=== PATIENT | male | born 1960 | race African-American/Black ===

== ENCOUNTER 2023-01-19 06:50 | Inpatient (IN) | payer MEDICAID, OTHER ==
[~2023-01-19] VITALS: Ht 182.9 cm; Wt 105.2 kg
[2023-01-19] VITALS (65 sets, daily range): BP systolic 47–165; BP diastolic 24–115; PULSE 43–103; RESP 6–37; TEMP 90–99.7
[2023-01-19] MEDS ORDERED: LIDOCAINE HCL 1% 20ML VIAL (Pyxis) INJ ONE (07:05)
[2023-01-19] MEDS ORDERED: IODIXANOL 320 MG/ML 150ML BOTTLE IV ONE (07:05)
[2023-01-19] MEDS ORDERED: MORPHINE SULFATE 2 MG/ML CPJ (NOT FOR IM USE) IV ONE (07:15)
[2023-01-19 07:24] LABS: BASOPHILS % 0.6 % (0.0-2.0); EOSINOPHILS % 1.9 % (0.0-5.0); HEMATOCRIT. 48.6 % (42.0-52.0); HEMOGLOBIN. 16.5 g/dL (14.0-18.0); MEAN CORPUSCULAR HEMOGLOBIN 30.2 pg (28.0-32.0); MEAN PLATELET VOLUME 9.4 fl (7.4-10.4); MONOCYTES % 5.5 % (2.0-8.0); PLATELET 198 x1000/uL (130-400); RED BLOOD CELL COUNT 5.46 mill/uL (4.7-6.1); RED CELL DISTRIBUTION WIDTH 15.4 % (11.6-14.6)
[2023-01-19] MEDS: PROPOFOL 10MG/ML 100ML 100 ML IV SCH ×2 (07:29→16:22)
[2023-01-19 07:32] LABS: CHLORIDE 104 mEq/L (98-107); INDEX HEMOLYSI 3 (1-3); INDEX ICTERIC 1 (1-4); INDEX LIPEMIC 1 (1-3); POTASSIUM 2.9 mEq/L (3.5-5.1); SODIUM 138 mEq/L (136-145)
[2023-01-19 07:36] LABS: INR 1.1
[2023-01-19 07:44] LABS: ALANINE AMINOTRANSFERASE 24 IU/L (13-61); ALBUMIN 3.2 g/dL (3.4-5.0); ASPARTATE AMINOTRANSFERASE 26 IU/L (15-37); CALCIUM 8.2 mg/dL (8.5-10.1); CARBON DIOXIDE 22 mEq/L (21-32); CREATININE 1.4 mg/dL (0.6-1.3); GLUCOSE 205 mg/dL (70-105); NT PRO B-TYPE NATRIURETIC PEP 3375 pg/mL (5-125); PROTEIN TOTAL 6.6 g/dL (6.0-8.3); TROPONIN I HIGH SENSITIVITY 58 ng/L (<78); UREA NITROGEN BLOOD 11 mg/dL (7-21)
[2023-01-19 07:46] LABS: BG BASE EXCESS -9.7 mmol/L (-2.0-2.0); BG CARBOXYHEMOGLOBIN 0.3 % (0.5-1.5); BG DEOXYHEMOGLOBIN 20.2 % (0.0-5.0); BG FRACTION INSPIRED OXYGEN 100; BG HCO3 ACT 16.7 mmol/L (22.0-26.0); BG METHEMOGLOBIN 0.1 % (0.0-1.5); BG OXYGEN SATURATION 79.7 % (92.0-98.5); BG OXYHEMOGLOBIN 79.4 % (94.0-97.0); BG PCO2 38.5 mmHg (35.0-45.0); BG PH 7.255 (7.350-7.450); BG PO2 51.4 mmHg (75.0-100.0); BG SAMPLE SITE RIGHT RADIAL; BG TOTAL HEMOGLOBIN 16.6 g/dL (12.0-18.0); BG VENT MODE VENT - AC
[2023-01-19] MEDS ORDERED: IOHEXOL-350 100 ML BOTTLE ONE (08:05)
[2023-01-19] MEDS ORDERED: KCL 20MEQ/100ML PREMIX 100 ML IV PRN ×2 (08:45→09:15)
[2023-01-19] MEDS ORDERED: MIDAZOLAM HCL 100 MG in DEXT 5% WATER 80 ML IV PRN (08:45)
[2023-01-19] MEDS ORDERED: ACETAMINOPHEN 650MG SUPP PR PRN ×2 (08:45)
[2023-01-19] MEDS ORDERED: CALCIUM GLUCONATE 2,000 MG in DEXT 5% WATER 80 ML IV PRN (08:45)
[2023-01-19] MEDS ORDERED: FENTANYL CITRATE/PF 1,000 MCG in SODIUM CHLORIDE 0.9% 80 ML IV PRN (08:45)
[2023-01-19] MEDS ORDERED: BUSPIRONE HCL 10MG TABLET NG PRN (08:45)
[2023-01-19] MEDS ORDERED: MAGNESIUM 2 G PREMIX 50 ML IV PRN (08:45)
[2023-01-19] MEDS ORDERED: IPRATROPIUM/ALBUTEROL 0.5-3(2.5)MG/3ML NEB HHN PRN (09:00)
[2023-01-19 09:17] LABS: BG BASE EXCESS -5.7 mmol/L (-2.0-2.0); BG CARBOXYHEMOGLOBIN 0.8 % (0.5-1.5); BG DEOXYHEMOGLOBIN 0.2 % (0.0-5.0); BG HCO3 ACT 18.5 mmol/L (22.0-26.0); BG METHEMOGLOBIN 0.3 % (0.0-1.5); BG OXYGEN SATURATION 99.8 % (92.0-98.5); BG OXYHEMOGLOBIN 98.7 % (94.0-97.0); BG PCO2 33.5 mmHg (35.0-45.0); BG PH 7.361 (7.350-7.450); BG PO2 388.1 mmHg (75.0-100.0); BG SAMPLE SITE LEFT RADIAL; BG TOTAL HEMOGLOBIN 16.8 g/dL (12.0-18.0); BG VENT MODE VENT - AC
[2023-01-19] MEDS: CHLORHEXIDINE GLUCONATE 4% EXTERNAL USE TOP SCH (09:30)
[2023-01-19 09:34] LABS: INR 1.1; PARTIAL THROMBOPLASTIN TIME 28.2 sec (23.4-31.0); PROTHROMBIN TIME 11.7 sec (9.6-11.0)
[2023-01-19 09:44] LABS: CREATINE KINASE MB FRACTION 3.1 ng/mL (0.5-3.6); THYROID STIMULATING HORMONE 2.3 uIU/mL (0.36-3.74)
[2023-01-19] MEDS ORDERED: POTASSIUM CHLORIDE INJ 40 MEQ in DEXT 5% WATER 250 ML IV ONE (10:30)
[2023-01-19] MEDS ORDERED: NOREPINEPHRINE 8 MG in DEXT 5% WATER 242 ML IV PRN (10:30)
[2023-01-19] MEDS ORDERED: LIDOCAINE HCL 1% 10 MG/ML 10ML VIAL ONE (10:41)
[2023-01-19] MEDS ORDERED: DEXTROSE 50% WATER 50ML SYRINGE IV PRN (10:45)
[2023-01-19] MEDS ORDERED: NOREPINEPHRINE 8MG/250ML PMX 250 ML IV PRN (10:45)
[2023-01-19] MEDS: NOREPINEPHRINE 32 MG in DEXT 5% WATER 218 ML IV PRN (11:12)
[2023-01-19] MEDS: FENTANYL CITRATE 2,500 MCG in SODIUM CHLORIDE 0.9% 200 ML IV PRN (11:14)
[2023-01-19] MEDS: PROPOFOL 10MG/ML 100ML 100 ML IV PRN ×2 (11:30→21:40)
[2023-01-19] MEDS: BLOOD SUGAR DIAGNOSTIC STRIP TEST SCH ×3 (11:30→20:52)
[2023-01-19] MEDS: KCL 20MEQ/100ML X 2 FOR TOTAL KCL 40MEQ/200ML IV SCH ×2 (12:00→14:00)
[2023-01-19] MEDS ORDERED: ATROPINE SULFATE 1MG/10ML SYR IV PRN (12:00)
[2023-01-19] MEDS: INSULIN LISPRO 100 UNITS/ML SUBCUT SCH ×3 (12:00→20:52)
[2023-01-19] MEDS: MIDAZOLAM HCL 100 MG in SODIUM CHLORIDE 0.9% 80 ML IV PRN (13:03)
[2023-01-19] MEDS: IPRATROPIUM/ALBUTEROL 0.5-3(2.5)MG/3ML NEB HHN SCH ×4 (13:06→21:07)
[2023-01-19] MEDS: MEPERIDINE HCL/PF 25MG/ML CPJ IV PRN (13:53)
[2023-01-19] MEDS: PANTOPRAZOLE SODIUM 40 MG/VIAL IV SCH (13:56)
[2023-01-19] MEDS: FUROSEMIDE 40MG/4ML VIAL IVP SCH ×2 (13:56→17:00)
[2023-01-19] MEDS: ENOXAPARIN 40MG/0.4ML SYR SUBCUT SCH (13:56)
[2023-01-19 14:02] LABS: CALCIUM 8.4 mg/dL (8.5-10.1); CREATININE 1.5 mg/dL (0.6-1.3); PHOSPHORUS 3.6 mg/dL (2.5-4.9)
[2023-01-19 15:50] LABS: CLARITY URINE TURBID (CLEAR); COLOR URINE DARK YELLOW (YELLOW); GLUCOSE URINE 1+ (NEGATIVE); KETONES URINE NEGATIVE (NEGATIVE); LEUKOCYTE ESTERASE URINE NEGATIVE (NEGATIVE); NITRITE URINE NEGATIVE (NEGATIVE); OCCULT BLOOD URINE 2+ (NEGATIVE); PH URINE 5.5 (4.5-8.0); PROTEIN URINE 4+ (NEGATIVE); SPECIFIC GRAVITY URINE 1.065 (1.005-1.030)
[2023-01-19 16:14] LABS: *AMPHETAMINES SCREEN URINE NEGATIVE (NEGATIVE); *BARBITURATES SCREEN URINE NEGATIVE (NEGATIVE); *BENZODIAZEPINES SCREEN URINE NEGATIVE (NEGATIVE); *COCAINE SCREEN URINE NEGATIVE (NEGATIVE); CANNABINOID URINE SCREEN NEGATIVE (NEGATIVE); ECSTASY MDMA SCREEN URINE NEGATIVE (NEGATIVE); METHADONE URINE SCREEN NEGATIVE (NEGATIVE); OPIATES URINE SCREEN PRESUMTIVE POSITIVE (NEGATIVE); PHENCYCLIDINE URINE SCREEN NEGATIVE (NEGATIVE)
[2023-01-19 16:50] LABS: BACTERIA URINE 4+; SQUAMOUS EPITHELIAL CELL URINE FEW /lpf (RARE/1+); WBC URINE 0-2 /hpf (0-2)
[2023-01-19 16:52] LABS: RBC URINE 15-25 /hpf (0-2)
[2023-01-19 17:16] LABS: BG BASE EXCESS -8.1 mmol/L (-2.0-2.0); BG CARBOXYHEMOGLOBIN 0.3 % (0.5-1.5); BG DEOXYHEMOGLOBIN 0.7 % (0.0-5.0); BG HCO3 ACT 19.6 mmol/L (22.0-26.0); BG METHEMOGLOBIN 0.3 % (0.0-1.5); BG OXYGEN SATURATION 99.3 % (92.0-98.5); BG OXYHEMOGLOBIN 98.7 % (94.0-97.0); BG PCO2 47.9 mmHg (35.0-45.0); BG SAMPLE SITE RIGHT RADIAL; BG TOTAL HEMOGLOBIN 18.1 g/dL (12.0-18.0); BG VENT MODE VENT - AC
[2023-01-19 17:56] LABS: POTASSIUM 3.8 mEq/L (3.5-5.1)
[2023-01-19 18:04] LABS: CALCIUM 9.3 mg/dL (8.5-10.1); CREATININE 1.6 mg/dL (0.6-1.3); PHOSPHORUS 3.5 mg/dL (2.5-4.9)
[2023-01-19 22:32] LABS: BG CARBOXYHEMOGLOBIN 0.3 % (0.5-1.5); BG DEOXYHEMOGLOBIN 3.9 % (0.0-5.0); BG FRACTION INSPIRED OXYGEN 40; BG HCO3 ACT 23.1 mmol/L (22.0-26.0); BG METHEMOGLOBIN 0.4 % (0.0-1.5); BG OXYGEN SATURATION 96.1 % (92.0-98.5); BG OXYHEMOGLOBIN 95.4 % (94.0-97.0); BG PCO2 40.8 mmHg (35.0-45.0); BG PH 7.371 (7.350-7.450); BG PO2 83.6 mmHg (75.0-100.0); BG SAMPLE SITE LEFT RADIAL; BG TOTAL HEMOGLOBIN 18.4 g/dL (12.0-18.0); BG TOTAL RESPIRATORY RATE 68 b/min; BG VENT MODE VENT - AC
[2023-01-20] VITALS (125 sets, daily range): BP systolic 71–146; BP diastolic 36–105; PULSE 45–110; RESP 8–25; TEMP 90–94.1
[2023-01-20] MEDS: IPRATROPIUM/ALBUTEROL 0.5-3(2.5)MG/3ML NEB HHN SCH ×5 (00:38→20:15)
[2023-01-20 01:19] LABS: TROPONIN I HIGH SENSITIVITY 952 ng/L (<78)
[2023-01-20 01:21] LABS: CALCIUM 9.5 mg/dL (8.5-10.1); CREATININE 1.6 mg/dL (0.6-1.3); PHOSPHORUS 3.3 mg/dL (2.5-4.9)
[2023-01-20] MEDS: PROPOFOL 10MG/ML 100ML 100 ML IV PRN ×6 (01:25→23:04)
[2023-01-20] MEDS: MIDAZOLAM HCL 100 MG in SODIUM CHLORIDE 0.9% 80 ML IV PRN ×2 (01:26→18:56)
[2023-01-20] MEDS: MEPERIDINE HCL/PF 25MG/ML CPJ IV PRN ×2 (05:05→09:28)
[2023-01-20 05:22] LABS: POTASSIUM 3.9 mEq/L (3.5-5.1)
[2023-01-20 05:34] LABS: CALCIUM 8.9 mg/dL (8.5-10.1); CREATININE 1.7 mg/dL (0.6-1.3); PHOSPHORUS 3.1 mg/dL (2.5-4.9)
[2023-01-20] MEDS: BLOOD SUGAR DIAGNOSTIC STRIP TEST SCH ×4 (06:04→20:24)
[2023-01-20] MEDS: INSULIN LISPRO 100 UNITS/ML SUBCUT SCH ×4 (06:05→20:24)
[2023-01-20] MEDS: PANTOPRAZOLE SODIUM 40 MG/VIAL IV SCH (09:02)
[2023-01-20] MEDS: FUROSEMIDE 40MG/4ML VIAL IVP SCH ×2 (09:02→17:24)
[2023-01-20 09:10] LABS: INR 1.1; PARTIAL THROMBOPLASTIN TIME 34.7 sec (23.4-31.0); PROTHROMBIN TIME 11.7 sec (9.6-11.0)
[2023-01-20] MEDS: ENOXAPARIN 40MG/0.4ML SYR SUBCUT SCH (09:11)
[2023-01-20] MEDS: CHLORHEXIDINE GLUCONATE 4% EXTERNAL USE TOP SCH (09:11)
[2023-01-20 10:02] LABS: BG BASE EXCESS -5.3 mmol/L (-2.0-2.0); BG CARBOXYHEMOGLOBIN 0.3 % (0.5-1.5); BG DEOXYHEMOGLOBIN 2.3 % (0.0-5.0); BG FRACTION INSPIRED OXYGEN 40; BG HCO3 ACT 22.5 mmol/L (22.0-26.0); BG METHEMOGLOBIN 0.7 % (0.0-1.5); BG OXYGEN SATURATION 97.7 % (92.0-98.5); BG OXYHEMOGLOBIN 96.7 % (94.0-97.0); BG PCO2 51.1 mmHg (35.0-45.0); BG PH 7.261 (7.350-7.450); BG SAMPLE SITE RIGHT RADIAL; BG TOTAL HEMOGLOBIN 19.8 g/dL (12.0-18.0); BG VENT MODE VENT - AC
[2023-01-20] MEDS: ASPIRIN 81MG TABLET PO SCH (11:35)
[2023-01-20] MEDS ORDERED: ENOXAPARIN 80MG/0.8ML SYR SUBCUT NR (11:45)
[2023-01-20] MEDS ORDERED: AMIODARONE HCL 900 MG in DEXT 5% WATER 482 ML IV SCH (13:00)
[2023-01-20 13:08] LABS: BASOPHILS % 0.3 % (0.0-2.0); EOSINOPHILS % 0.9 % (0.0-5.0); LYMPHOCYTES % 12.7 % (20.0-50.0); MEAN CORPUSCULAR HEMOGLOBIN 30.2 pg (28.0-32.0); MEAN CORPUSCULAR HGB CONC 34.6 g/dL (31.0-37.0); MEAN CORPUSCULAR VOLUME 87.2 fL (80.0-94.0); MONOCYTES % 10.1 % (2.0-8.0); PLATELET 250 x1000/uL (130-400); RED BLOOD CELL COUNT 5.96 mill/uL (4.7-6.1); RED CELL DISTRIBUTION WIDTH 15.6 % (11.6-14.6); WHITE BLOOD COUNT 9.2 x1000/uL (4.5-11.0)
[2023-01-20 13:24] LABS: POTASSIUM 3.6 mEq/L (3.5-5.1)
[2023-01-20 13:36] LABS: CALCIUM 8.6 mg/dL (8.5-10.1); CREATININE 1.8 mg/dL (0.6-1.3); PHOSPHORUS 4.8 mg/dL (2.5-4.9)
[2023-01-20] MEDS: ACETAMINOPHEN 650MG/20.3ML UDC NG PRN (15:20)
[2023-01-20] MEDS: PIPERACILLIN/TAZOBACTAM 3.375 G in DEXTROSE 5% WATER 50 ML IV SCH ×2 (17:24→23:04)
[2023-01-20] MEDS: DOCUSATE SODIUM SUGAR FREE 100MG/10ML UDC NG SCH (17:24)
[2023-01-20 17:30] LABS: BASOPHILS % 0.4 % (0.0-2.0); EOSINOPHILS % 1.1 % (0.0-5.0); HEMATOCRIT. 54.2 % (42.0-52.0); HEMOGLOBIN. 18.1 g/dL (14.0-18.0); LYMPHOCYTES % 13.3 % (20.0-50.0); MEAN CORPUSCULAR HEMOGLOBIN 29.7 pg (28.0-32.0); MEAN CORPUSCULAR HGB CONC 33.4 g/dL (31.0-37.0); MEAN CORPUSCULAR VOLUME 88.9 fL (80.0-94.0); MEAN PLATELET VOLUME 9.2 fl (7.4-10.4); MONOCYTES % 14.7 % (2.0-8.0); NEUTROPHILS % 70.5 % (40.0-76.0); PLATELET 251 x1000/uL (130-400); RED BLOOD CELL COUNT 6.09 mill/uL (4.7-6.1); RED CELL DISTRIBUTION WIDTH 15.8 % (11.6-14.6); WHITE BLOOD COUNT 10.4 x1000/uL (4.5-11.0)
[2023-01-20 17:40] LABS: INR 1.1; PROTHROMBIN TIME 11.6 sec (9.6-11.0)
[2023-01-20 17:41] LABS: POTASSIUM 3.7 mEq/L (3.5-5.1)
[2023-01-20 17:45] LABS: CREATININE 1.8 mg/dL (0.6-1.3)
[2023-01-20] MEDS: ATORVASTATIN CALCIUM 40MG TABLET PO SCH (20:25)
[2023-01-20] MEDS: NOREPINEPHRINE 32 MG in DEXT 5% WATER 218 ML IV PRN (20:25)
[2023-01-20] MEDS: FENTANYL CITRATE 2,500 MCG in SODIUM CHLORIDE 0.9% 200 ML IV PRN (20:26)
[2023-01-20 21:55] LABS: HEMATOCRIT. 53.8 % (42.0-52.0); HEMOGLOBIN. 17.9 g/dL (14.0-18.0); MEAN CORPUSCULAR HEMOGLOBIN 29.6 pg (28.0-32.0); MEAN CORPUSCULAR HGB CONC 33.2 g/dL (31.0-37.0); MEAN CORPUSCULAR VOLUME 89.2 fL (80.0-94.0); RED BLOOD CELL COUNT 6.04 mill/uL (4.7-6.1); RED CELL DISTRIBUTION WIDTH 16.2 % (11.6-14.6); WHITE BLOOD COUNT 12.1 x1000/uL (4.5-11.0)
[2023-01-20 22:02] LABS: CALCIUM 9.2 mg/dL (8.5-10.1); POTASSIUM 3.6 mEq/L (3.5-5.1)
[2023-01-20 22:05] LABS: INR 1.1; PROTHROMBIN TIME 11.9 sec (9.6-11.0)
[2023-01-20 22:07] LABS: PHOSPHORUS 4.5 mg/dL (2.5-4.9)
[2023-01-20 22:15] LABS: DIFFERENTIAL COMMENT 1
[2023-01-20 22:58] LABS: ANISOCYTOSIS 1+; PLATELET ESTIMATE NORMAL
[2023-01-20] MEDS: ENOXAPARIN 120MG/0.8ML SYR SUBCUT SCH (23:04)
[2023-01-21] VITALS (143 sets, daily range): BP systolic 69–168; BP diastolic 30–143; PULSE 57–124; RESP 4–30; TEMP 94.3–100.4
[2023-01-21] MEDS: IPRATROPIUM/ALBUTEROL 0.5-3(2.5)MG/3ML NEB HHN SCH ×6 (00:12→19:56)
[2023-01-21 02:00] LABS: CALCIUM 9.2 mg/dL (8.5-10.1); POTASSIUM 3.8 mEq/L (3.5-5.1)
[2023-01-21 02:03] LABS: BASOPHILS % 0.4 % (0.0-2.0); EOSINOPHILS % 1.4 % (0.0-5.0); HEMATOCRIT. 55.3 % (42.0-52.0); HEMOGLOBIN. 18.6 g/dL (14.0-18.0); LYMPHOCYTES % 13.7 % (20.0-50.0); MEAN CORPUSCULAR HEMOGLOBIN 29.9 pg (28.0-32.0); MEAN CORPUSCULAR HGB CONC 33.7 g/dL (31.0-37.0); MEAN CORPUSCULAR VOLUME 88.8 fL (80.0-94.0); MEAN PLATELET VOLUME 9.2 fl (7.4-10.4); NEUTROPHILS % 71.5 % (40.0-76.0); PLATELET 240 x1000/uL (130-400); RED BLOOD CELL COUNT 6.23 mill/uL (4.7-6.1); RED CELL DISTRIBUTION WIDTH 15.9 % (11.6-14.6); WHITE BLOOD COUNT 9.5 x1000/uL (4.5-11.0)
[2023-01-21] MEDS: PHENYLEPHRINE 100 MG in DEXT 5% WATER 240 ML IV PRN ×5 (02:16→23:52)
[2023-01-21] MEDS: PROPOFOL 10MG/ML 100ML 100 ML IV PRN ×4 (03:11→20:23)
[2023-01-21 04:29] LABS: BASOPHILS % 0.4 % (0.0-2.0); EOSINOPHILS % 1.3 % (0.0-5.0); HEMATOCRIT. 52.3 % (42.0-52.0); HEMOGLOBIN. 17.3 g/dL (14.0-18.0); LYMPHOCYTES % 13.9 % (20.0-50.0); MEAN CORPUSCULAR HEMOGLOBIN 29.6 pg (28.0-32.0); MEAN CORPUSCULAR HGB CONC 33.1 g/dL (31.0-37.0); MEAN CORPUSCULAR VOLUME 89.5 fL (80.0-94.0); NEUTROPHILS % 71.4 % (40.0-76.0); PLATELET 232 x1000/uL (130-400); RED BLOOD CELL COUNT 5.84 mill/uL (4.7-6.1); RED CELL DISTRIBUTION WIDTH 15.9 % (11.6-14.6); WHITE BLOOD COUNT 8.2 x1000/uL (4.5-11.0)
[2023-01-21 04:55] LABS: CALCIUM 8.4 mg/dL (8.5-10.1); CREATININE 2.7 mg/dL (0.6-1.3); POTASSIUM 3.5 mEq/L (3.5-5.1)
[2023-01-21] MEDS: PIPERACILLIN/TAZOBACTAM 3.375 G in DEXTROSE 5% WATER 50 ML IV SCH ×3 (05:09→22:56)
[2023-01-21 05:10] LABS: MEAN PLATELET VOLUME 9.3 fl (7.4-10.4); PLATELET 261 x1000/uL (130-400)
[2023-01-21] MEDS: BLOOD SUGAR DIAGNOSTIC STRIP TEST SCH ×4 (06:37→21:22)
[2023-01-21] MEDS: INSULIN LISPRO 100 UNITS/ML SUBCUT SCH ×4 (06:37→21:00)
[2023-01-21] MEDS: PANTOPRAZOLE SODIUM 40 MG/VIAL IV SCH (09:00)
[2023-01-21] MEDS: ASPIRIN 81MG TABLET PO SCH (09:00)
[2023-01-21] MEDS: DOCUSATE SODIUM SUGAR FREE 100MG/10ML UDC NG SCH ×2 (09:00→16:21)
[2023-01-21] MEDS: CHLORHEXIDINE GLUCONATE 4% EXTERNAL USE TOP SCH (09:00)
[2023-01-21] MEDS: FUROSEMIDE 40MG/4ML VIAL IVP SCH (09:02)
[2023-01-21 09:17] LABS: POTASSIUM 4.1 mEq/L (3.5-5.1)
[2023-01-21 09:18] LABS: CALCIUM 8.3 mg/dL (8.5-10.1)
[2023-01-21 09:22] LABS: CREATININE 3.2 mg/dL (0.6-1.3)
[2023-01-21 10:19] LABS: BG BASE EXCESS -6.6 mmol/L (-2.0-2.0); BG CARBOXYHEMOGLOBIN 0.3 % (0.5-1.5); BG DEOXYHEMOGLOBIN 4.8 % (0.0-5.0); BG FRACTION INSPIRED OXYGEN 40; BG HCO3 ACT 19.7 mmol/L (22.0-26.0); BG METHEMOGLOBIN 0.7 % (0.0-1.5); BG OXYGEN SATURATION 95.2 % (92.0-98.5); BG OXYHEMOGLOBIN 94.2 % (94.0-97.0); BG PH 7.288 (7.350-7.450); BG PO2 86.5 mmHg (75.0-100.0); BG SAMPLE SITE RIGHT RADIAL; BG TOTAL HEMOGLOBIN 19.7 g/dL (12.0-18.0); BG VENT MODE VENT - AC
[2023-01-21] MEDS: SODIUM CHLORIDE 0.9% 1,000 ML IV SCH (12:02)
[2023-01-21] MEDS: CITRIC ACID/SODIUM CITRATE SOLN 30ML UDC NG SCH ×2 (12:28→16:21)
[2023-01-21] MEDS: ENOXAPARIN 120MG/0.8ML SYR SUBCUT SCH (12:28)
[2023-01-21] MEDS: MIDODRINE HCL 5MG TABLET PO SCH ×2 (12:29→16:21)
[2023-01-21 12:55] LABS: POTASSIUM 4.6 mEq/L (3.5-5.1)
[2023-01-21 13:03] LABS: CALCIUM 8.4 mg/dL (8.5-10.1); CREATININE 3.3 mg/dL (0.6-1.3)
[2023-01-21] MEDS: ACETAMINOPHEN 650MG/20.3ML UDC NG PRN (13:12)
[2023-01-21] MEDS: AMIODARONE HCL 200 MG TABLET PO SCH ×2 (15:31→20:27)
[2023-01-21 20:24] LABS: BG BASE EXCESS -7.4 mmol/L (-2.0-2.0); BG CARBOXYHEMOGLOBIN 0.3 % (0.5-1.5); BG DEOXYHEMOGLOBIN 3.6 % (0.0-5.0); BG FRACTION INSPIRED OXYGEN 30; BG HCO3 ACT 17.9 mmol/L (22.0-26.0); BG METHEMOGLOBIN 0.6 % (0.0-1.5); BG OXYGEN SATURATION 96.4 % (92.0-98.5); BG OXYHEMOGLOBIN 95.5 % (94.0-97.0); BG PCO2 36.6 mmHg (35.0-45.0); BG PH 7.307 (7.350-7.450); BG PO2 93.3 mmHg (75.0-100.0); BG SAMPLE SITE RIGHT RADIAL; BG TOTAL HEMOGLOBIN 19.4 g/dL (12.0-18.0); BG TOTAL RESPIRATORY RATE 24 b/min; BG VENT MODE VENT - AC
[2023-01-21] MEDS: ATORVASTATIN CALCIUM 40MG TABLET PO SCH (20:27)
[2023-01-21 21:10] LABS: HEMATOCRIT. 55.5 % (42.0-52.0); HEMOGLOBIN. 18.3 g/dL (14.0-18.0); MEAN CORPUSCULAR HEMOGLOBIN 29.8 pg (28.0-32.0); MEAN CORPUSCULAR VOLUME 90.4 fL (80.0-94.0); RED BLOOD CELL COUNT 6.14 mill/uL (4.7-6.1); RED CELL DISTRIBUTION WIDTH 16.8 % (11.6-14.6); WHITE BLOOD COUNT 10.9 x1000/uL (4.5-11.0)
[2023-01-21 21:13] LABS: CHLORIDE 102 mEq/L (98-107); INDEX HEMOLYSI 1 (1-3); INDEX ICTERIC 1 (1-4); INDEX LIPEMIC 1 (1-3); SODIUM 134 mEq/L (136-145)
[2023-01-21 21:17] LABS: INR 1.2; PARTIAL THROMBOPLASTIN TIME 43.6 sec (23.4-31.0)
[2023-01-21 21:21] LABS: DIFFERENTIAL COMMENT 1
[2023-01-21 21:25] LABS: ALANINE AMINOTRANSFERASE 173 IU/L (13-61); ALBUMIN 3.4 g/dL (3.4-5.0); ASPARTATE AMINOTRANSFERASE 208 IU/L (15-37); BILIRUBIN TOTAL 1.3 mg/dL (0.1-1.0); CALCIUM 8.6 mg/dL (8.5-10.1); CARBON DIOXIDE 19 mEq/L (21-32); CREATININE 2.9 mg/dL (0.6-1.3); GLUCOSE 71 mg/dL (70-105); PROTEIN TOTAL 8.3 g/dL (6.0-8.3); UREA NITROGEN BLOOD 30 mg/dL (7-21)
[2023-01-21 21:35] LABS: TROPONIN I HIGH SENSITIVITY 256 ng/L (<78)
[2023-01-21 21:46] LABS: MEAN PLATELET VOLUME 9.2 fl (7.4-10.4); PLATELET 248 x1000/uL (130-400); PLATELET ESTIMATE NORMAL
[2023-01-21] MEDS: MEPERIDINE HCL/PF 25MG/ML CPJ IV PRN (23:20)
[2023-01-22] VITALS (92 sets, daily range): BP systolic 74–219; BP diastolic 36–113; PULSE 62–88; RESP 14–30; TEMP 97.8–100
[2023-01-22] MEDS: IPRATROPIUM/ALBUTEROL 0.5-3(2.5)MG/3ML NEB HHN SCH ×6 (00:18→20:14)
[2023-01-22] MEDS: MEPERIDINE HCL/PF 25MG/ML CPJ IV PRN (03:50)
[2023-01-22] MEDS: PROPOFOL 10MG/ML 100ML 100 ML IV PRN ×4 (03:51→23:00)
[2023-01-22] MEDS: PHENYLEPHRINE 100 MG in DEXT 5% WATER 240 ML IV PRN ×3 (04:43→17:13)
[2023-01-22 04:59] LABS: HEMATOCRIT. 51.3 % (42.0-52.0); HEMOGLOBIN. 17.1 g/dL (14.0-18.0); MEAN CORPUSCULAR HEMOGLOBIN 29.9 pg (28.0-32.0); MEAN CORPUSCULAR HGB CONC 33.3 g/dL (31.0-37.0); MEAN CORPUSCULAR VOLUME 89.7 fL (80.0-94.0); MEAN PLATELET VOLUME 9.9 fl (7.4-10.4); PLATELET 242 x1000/uL (130-400); RED BLOOD CELL COUNT 5.72 mill/uL (4.7-6.1); RED CELL DISTRIBUTION WIDTH 16.5 % (11.6-14.6); WHITE BLOOD COUNT 9.2 x1000/uL (4.5-11.0)
[2023-01-22 05:13] LABS: CHLORIDE 100 mEq/L (98-107); INDEX HEMOLYSI 3 (1-3); INDEX ICTERIC 1 (1-4); INDEX LIPEMIC 1 (1-3); POTASSIUM 4.4 mEq/L (3.5-5.1); SODIUM 133 mEq/L (136-145)
[2023-01-22 05:26] LABS: ALANINE AMINOTRANSFERASE 214 IU/L (13-61); ALBUMIN 3.2 g/dL (3.4-5.0); ASPARTATE AMINOTRANSFERASE 304 IU/L (15-37); CALCIUM 7.9 mg/dL (8.5-10.1); CARBON DIOXIDE 22 mEq/L (21-32); CREATININE 3.2 mg/dL (0.6-1.3); GLUCOSE 76 mg/dL (70-105); PHOSPHORUS 7.4 mg/dL (2.5-4.9); PROTEIN TOTAL 7.6 g/dL (6.0-8.3); TRIGLYCERIDE 143 mg/dL (0-150); UREA NITROGEN BLOOD 32 mg/dL (7-21)
[2023-01-22 05:36] LABS: DIFFERENTIAL COMMENT 1
[2023-01-22 05:48] LABS: INR 1.2; PARTIAL THROMBOPLASTIN TIME 40.2 sec (23.4-31.0); PROTHROMBIN TIME 12.9 sec (9.6-11.0)
[2023-01-22] MEDS: SODIUM CHLORIDE 0.9% 1,000 ML IV SCH (06:30)
[2023-01-22] MEDS: INSULIN LISPRO 100 UNITS/ML SUBCUT SCH ×4 (07:00→20:42)
[2023-01-22] MEDS: PIPERACILLIN/TAZOBACTAM 3.375 G in DEXTROSE 5% WATER 50 ML IV SCH ×3 (07:01→22:00)
[2023-01-22] MEDS: BLOOD SUGAR DIAGNOSTIC STRIP TEST SCH ×4 (07:03→20:42)
[2023-01-22 07:09] LABS: TROPONIN I HIGH SENSITIVITY 208 ng/L (<78)
[2023-01-22 08:55] LABS: BG BASE EXCESS -4.6 mmol/L (-2.0-2.0); BG CARBOXYHEMOGLOBIN 0.6 % (0.5-1.5); BG DEOXYHEMOGLOBIN 7.4 % (0.0-5.0); BG FRACTION INSPIRED OXYGEN 30; BG HCO3 ACT 20.2 mmol/L (22.0-26.0); BG METHEMOGLOBIN 0.4 % (0.0-1.5); BG OXYGEN SATURATION 92.5 % (92.0-98.5); BG OXYHEMOGLOBIN 91.6 % (94.0-97.0); BG PCO2 37.1 mmHg (35.0-45.0); BG PH 7.353 (7.350-7.450); BG PO2 69.5 mmHg (75.0-100.0); BG SAMPLE SITE RIGHT RADIAL; BG TOTAL HEMOGLOBIN 17.9 g/dL (12.0-18.0); BG TOTAL RESPIRATORY RATE 25 b/min; BG VENT MODE VENT - AC
[2023-01-22] MEDS: MIDODRINE HCL 5MG TABLET PO SCH ×3 (09:00→16:45)
[2023-01-22] MEDS: ENOXAPARIN 120MG/0.8ML SYR SUBCUT SCH (09:00)
[2023-01-22] MEDS ORDERED: NOREPINEPHRINE 32 MG in SODIUM CHLORIDE 0.9% 218 ML IV PRN (09:00)
[2023-01-22] MEDS: DOCUSATE SODIUM SUGAR FREE 100MG/10ML UDC NG SCH ×2 (09:04→16:45)
[2023-01-22] MEDS: PANTOPRAZOLE SODIUM 40 MG/VIAL IV SCH (09:04)
[2023-01-22] MEDS: AMIODARONE HCL 200 MG TABLET PO SCH ×2 (09:04→21:00)
[2023-01-22] MEDS: ASPIRIN 81MG TABLET PO SCH (09:04)
[2023-01-22] MEDS: CITRIC ACID/SODIUM CITRATE SOLN 30ML UDC NG SCH ×2 (09:04→16:45)
[2023-01-22] MEDS: CHLORHEXIDINE GLUCONATE 4% EXTERNAL USE TOP SCH (09:05)
[2023-01-22 13:13] LABS: PLATELET ESTIMATE NORMAL
[2023-01-22] MEDS: ACETAMINOPHEN 650MG/20.3ML UDC NG PRN (16:45)
[2023-01-22] MEDS: ATORVASTATIN CALCIUM 40MG TABLET PO SCH (21:00)
[2023-01-23] VITALS (71 sets, daily range): BP systolic 94–147; BP diastolic 42–98; PULSE 55–95; RESP 22–29; TEMP 97.9–98.9
[2023-01-23] MEDS: IPRATROPIUM/ALBUTEROL 0.5-3(2.5)MG/3ML NEB HHN SCH ×6 (00:29→20:27)
[2023-01-23] MEDS: SODIUM CHLORIDE 0.9% 1,000 ML IV SCH ×2 (02:30→19:59)
[2023-01-23] MEDS: PROPOFOL 10MG/ML 100ML 100 ML IV PRN ×3 (04:00→14:41)
[2023-01-23] MEDS: PIPERACILLIN/TAZOBACTAM 3.375 G in DEXTROSE 5% WATER 50 ML IV SCH ×3 (05:10→22:00)
[2023-01-23 05:42] LABS: HEMATOCRIT 48.9 % (42.0-52.0); HEMOGLOBIN 16.1 g/dL (14.0-18.0); MEAN CORPUSCULAR HEMOGLOBIN 29.1 pg (28.0-32.0); MEAN CORPUSCULAR HGB CONC 32.9 g/dL (31.0-37.0); MEAN CORPUSCULAR VOLUME 88.4 fL (80.0-94.0); PLATELET 214 x1000/uL (130-400); RED BLOOD CELL COUNT 5.54 mill/uL (4.7-6.1); WHITE BLOOD COUNT 8.1 x1000/uL (4.5-11.0)
[2023-01-23 06:01] LABS: CHLORIDE 101 mEq/L (98-107); INDEX HEMOLYSI 1 (1-3); INDEX ICTERIC 1 (1-4); INDEX LIPEMIC 1 (1-3); POTASSIUM 3.2 mEq/L (3.5-5.1); SODIUM 134 mEq/L (136-145)
[2023-01-23 06:15] LABS: ALANINE AMINOTRANSFERASE 171 IU/L (13-61); ALBUMIN 2.9 g/dL (3.4-5.0); ASPARTATE AMINOTRANSFERASE 168 IU/L (15-37); BILIRUBIN TOTAL 1.1 mg/dL (0.1-1.0); CALCIUM 8.6 mg/dL (8.5-10.1); CARBON DIOXIDE 22 mEq/L (21-32); CREATININE 2.3 mg/dL (0.6-1.3); GLUCOSE 127 mg/dL (70-105); PROTEIN TOTAL 7.2 g/dL (6.0-8.3); TRIGLYCERIDE 148 mg/dL (0-150); UREA NITROGEN BLOOD 32 mg/dL (7-21)
[2023-01-23] MEDS: BLOOD SUGAR DIAGNOSTIC STRIP TEST SCH ×4 (06:38→21:05)
[2023-01-23] MEDS: INSULIN LISPRO 100 UNITS/ML SUBCUT SCH ×4 (07:00→21:00)
[2023-01-23] MEDS ORDERED: POTASSIUM CHLORIDE 20MEQ/PACKET PO NR (07:30)
[2023-01-23] MEDS: PANTOPRAZOLE SODIUM 40 MG/VIAL IV SCH (08:54)
[2023-01-23] MEDS: CITRIC ACID/SODIUM CITRATE SOLN 30ML UDC NG SCH ×2 (08:54→17:56)
[2023-01-23] MEDS: MIDODRINE HCL 5MG TABLET PO SCH ×3 (08:54→17:56)
[2023-01-23] MEDS: DOCUSATE SODIUM SUGAR FREE 100MG/10ML UDC NG SCH ×2 (08:54→17:00)
[2023-01-23] MEDS: ASPIRIN 81MG TABLET PO SCH (08:54)
[2023-01-23] MEDS: AMIODARONE HCL 200 MG TABLET PO SCH ×2 (08:55→21:05)
[2023-01-23] MEDS: ENOXAPARIN 120MG/0.8ML SYR SUBCUT SCH (09:03)
[2023-01-23] MEDS: CHLORHEXIDINE GLUCONATE 4% EXTERNAL USE TOP SCH (09:09)
[2023-01-23 12:25] LABS: BG CARBOXYHEMOGLOBIN 1.2 % (0.5-1.5); BG DEOXYHEMOGLOBIN 2.1 % (0.0-5.0); BG HCO3 ACT 23.8 mmol/L (22.0-26.0); BG METHEMOGLOBIN 0.5 % (0.0-1.5); BG OXYGEN SATURATION 97.9 % (92.0-98.5); BG OXYHEMOGLOBIN 96.2 % (94.0-97.0); BG PH 7.517 (7.350-7.450); BG PO2 88.1 mmHg (75.0-100.0); BG SAMPLE SITE LEFT RADIAL; BG TOTAL HEMOGLOBIN 16.6 g/dL (12.0-18.0); BG VENT MODE VENT - AC
[2023-01-23] MEDS: ATORVASTATIN CALCIUM 40MG TABLET PO SCH (21:05)
[2023-01-23] MEDS: MORPHINE SULFATE 2 MG/ML CPJ (NOT FOR IM USE) IV PRN (23:50)
[2023-01-24] VITALS (74 sets, daily range): BP systolic 60–146; BP diastolic 70–111; PULSE 55–79; RESP 11–28; TEMP 98.4–98.9
[2023-01-24] MEDS: IPRATROPIUM/ALBUTEROL 0.5-3(2.5)MG/3ML NEB HHN SCH ×4 (01:12→12:40)
[2023-01-24] MEDS: ACETAMINOPHEN 650MG/20.3ML UDC NG PRN (02:23)
[2023-01-24] MEDS: MORPHINE SULFATE 2 MG/ML CPJ (NOT FOR IM USE) IV PRN ×2 (02:50→09:11)
[2023-01-24 05:31] LABS: CHLORIDE 106 mEq/L (98-107); INDEX HEMOLYSI 1 (1-3); INDEX ICTERIC 1 (1-4); INDEX LIPEMIC 1 (1-3); POTASSIUM 3.2 mEq/L (3.5-5.1); SODIUM 138 mEq/L (136-145)
[2023-01-24] MEDS: PIPERACILLIN/TAZOBACTAM 3.375 G in DEXTROSE 5% WATER 50 ML IV SCH ×4 (05:39→22:50)
[2023-01-24 05:44] LABS: BASOPHILS % 0.3 % (0.0-2.0); EOSINOPHILS % 0.9 % (0.0-5.0); HEMATOCRIT. 47.6 % (42.0-52.0); HEMOGLOBIN. 15.6 g/dL (14.0-18.0); LYMPHOCYTES % 11.6 % (20.0-50.0); MEAN CORPUSCULAR HEMOGLOBIN 29.3 pg (28.0-32.0); MEAN CORPUSCULAR HGB CONC 32.8 g/dL (31.0-37.0); MEAN CORPUSCULAR VOLUME 89.3 fL (80.0-94.0); MEAN PLATELET VOLUME 8.8 fl (7.4-10.4); MONOCYTES % 14.8 % (2.0-8.0); NEUTROPHILS % 72.4 % (40.0-76.0); PLATELET 206 x1000/uL (130-400); RED BLOOD CELL COUNT 5.33 mill/uL (4.7-6.1); RED CELL DISTRIBUTION WIDTH 15.7 % (11.6-14.6); WHITE BLOOD COUNT 7.4 x1000/uL (4.5-11.0)
[2023-01-24 05:47] LABS: ALANINE AMINOTRANSFERASE 117 IU/L (13-61); ALBUMIN 2.8 g/dL (3.4-5.0); ASPARTATE AMINOTRANSFERASE 81 IU/L (15-37); CALCIUM 8.6 mg/dL (8.5-10.1); CARBON DIOXIDE 24 mEq/L (21-32); CREATINE KINASE 956 IU/L (39-308); CREATININE 2.2 mg/dL (0.6-1.3); GLUCOSE 101 mg/dL (70-105); PHOSPHORUS 2.2 mg/dL (2.5-4.9); PROTEIN TOTAL 7.1 g/dL (6.0-8.3); UREA NITROGEN BLOOD 37 mg/dL (7-21)
[2023-01-24] MEDS ORDERED: POTASSIUM CHLORIDE 20MEQ/PACKET PO NR (06:30)
[2023-01-24] MEDS: BLOOD SUGAR DIAGNOSTIC STRIP TEST SCH ×4 (06:46→21:00)
[2023-01-24] MEDS: INSULIN LISPRO 100 UNITS/ML SUBCUT SCH ×4 (07:00→21:00)
[2023-01-24] MEDS ORDERED: NALOXONE HCL 0.4MG/ML VIAL IV PRN (07:30)
[2023-01-24] MEDS ORDERED: POTASSIUM PHOS,M-BASIC-D-BASIC 20 MMOL in DEXT 5% WATER 243.3333 ML IV NR (07:45)
[2023-01-24 08:17] LABS: BG BASE EXCESS 2.9 mmol/L (-2.0-2.0); BG CARBOXYHEMOGLOBIN 0.4 % (0.5-1.5); BG DEOXYHEMOGLOBIN 1.6 % (0.0-5.0); BG FRACTION INSPIRED OXYGEN 30; BG HCO3 ACT 24.2 mmol/L (22.0-26.0); BG METHEMOGLOBIN 0.4 % (0.0-1.5); BG OXYGEN SATURATION 98.4 % (92.0-98.5); BG OXYHEMOGLOBIN 97.6 % (94.0-97.0); BG PCO2 28.7 mmHg (35.0-45.0); BG PH 7.543 (7.350-7.450); BG PO2 106.8 mmHg (75.0-100.0); BG SAMPLE SITE RIGHT RADIAL; BG TOTAL HEMOGLOBIN 16.2 g/dL (12.0-18.0); BG VENT MODE VENT - AC
[2023-01-24] MEDS: ASPIRIN 81MG TABLET PO SCH (08:51)
[2023-01-24] MEDS: CHLORHEXIDINE GLUCONATE 4% EXTERNAL USE TOP SCH (08:51)
[2023-01-24] MEDS: AMIODARONE HCL 200 MG TABLET PO SCH ×2 (08:51→20:25)
[2023-01-24] MEDS: PANTOPRAZOLE SODIUM 40 MG/VIAL IV SCH (08:51)
[2023-01-24] MEDS: DOCUSATE SODIUM SUGAR FREE 100MG/10ML UDC NG SCH ×2 (08:52→17:00)
[2023-01-24] MEDS: CITRIC ACID/SODIUM CITRATE SOLN 30ML UDC NG SCH ×2 (09:08→18:24)
[2023-01-24] MEDS: MIDODRINE HCL 5MG TABLET PO SCH ×3 (09:08→18:25)
[2023-01-24] MEDS: ENOXAPARIN 120MG/0.8ML SYR SUBCUT SCH (09:09)
[2023-01-24] MEDS: PROPOFOL 10MG/ML 100ML 100 ML IV PRN ×2 (13:16→20:24)
[2023-01-24] MEDS: SODIUM CHLORIDE 0.9% 1,000 ML IV SCH (13:17)
[2023-01-24] MEDS: ATORVASTATIN CALCIUM 40MG TABLET PO SCH (20:24)
[2023-01-25] VITALS (84 sets, daily range): BP systolic 106–158; BP diastolic 54–112; PULSE 44–75; RESP 8–24; TEMP 97.6–99
[2023-01-25] MEDS: PROPOFOL 10MG/ML 100ML 100 ML IV PRN ×5 (02:33→23:45)
[2023-01-25 05:07] LABS: HEMOGLOBIN. 14.5 g/dL (14.0-18.0); MEAN CORPUSCULAR HEMOGLOBIN 29.1 pg (28.0-32.0); MEAN CORPUSCULAR HGB CONC 32.3 g/dL (31.0-37.0); MEAN CORPUSCULAR VOLUME 90.1 fL (80.0-94.0); MEAN PLATELET VOLUME 8.3 fl (7.4-10.4); PLATELET 203 x1000/uL (130-400); RED BLOOD CELL COUNT 4.99 mill/uL (4.7-6.1); RED CELL DISTRIBUTION WIDTH 16.1 % (11.6-14.6)
[2023-01-25] MEDS: SODIUM CHLORIDE 0.9% 1,000 ML IV SCH ×3 (05:09→23:45)
[2023-01-25 05:27] LABS: DIFFERENTIAL COMMENT 1
[2023-01-25] MEDS: PIPERACILLIN/TAZOBACTAM 3.375 G in DEXTROSE 5% WATER 50 ML IV SCH (05:35)
[2023-01-25] MEDS: BLOOD SUGAR DIAGNOSTIC STRIP TEST SCH ×4 (06:30→21:00)
[2023-01-25] MEDS: INSULIN LISPRO 100 UNITS/ML SUBCUT SCH ×4 (06:48→21:00)
[2023-01-25 07:02] LABS: PLATELET ESTIMATE NORMAL
[2023-01-25] MEDS: PANTOPRAZOLE SODIUM 40 MG/VIAL IV SCH (08:31)
[2023-01-25] MEDS: CITRIC ACID/SODIUM CITRATE SOLN 30ML UDC NG SCH ×2 (08:31→18:59)
[2023-01-25] MEDS: ASPIRIN 81MG TABLET PO SCH (08:31)
[2023-01-25] MEDS: CHLORHEXIDINE GLUCONATE 4% EXTERNAL USE TOP SCH (08:31)
[2023-01-25] MEDS: AMIODARONE HCL 200 MG TABLET PO SCH ×2 (08:32→21:00)
[2023-01-25] MEDS: MIDODRINE HCL 5MG TABLET PO SCH ×3 (08:32→17:00)
[2023-01-25] MEDS: DOCUSATE SODIUM SUGAR FREE 100MG/10ML UDC NG SCH ×2 (08:32→17:00)
[2023-01-25] MEDS: ENOXAPARIN 120MG/0.8ML SYR SUBCUT SCH ×2 (08:38→21:24)
[2023-01-25 08:53] LABS: BG BASE EXCESS -1.7 mmol/L (-2.0-2.0); BG CARBOXYHEMOGLOBIN 0.6 % (0.5-1.5); BG DEOXYHEMOGLOBIN 2.5 % (0.0-5.0); BG HCO3 ACT 21.7 mmol/L (22.0-26.0); BG METHEMOGLOBIN 0.3 % (0.0-1.5); BG OXYGEN SATURATION 97.5 % (92.0-98.5); BG OXYHEMOGLOBIN 96.6 % (94.0-97.0); BG PCO2 33.3 mmHg (35.0-45.0); BG PH 7.431 (7.350-7.450); BG PO2 102.7 mmHg (75.0-100.0); BG SAMPLE SITE RIGHT RADIAL; BG TOTAL HEMOGLOBIN 15.3 g/dL (12.0-18.0); BG VENT MODE VENT - AC
[2023-01-25 09:17] LABS: POTASSIUM 3.8 mEq/L (3.5-5.1)
[2023-01-25 09:24] LABS: CALCIUM 8.6 mg/dL (8.5-10.1)
[2023-01-25] MEDS ORDERED: POTASSIUM CHLORIDE 20MEQ/PACKET PO NR (09:45)
[2023-01-25 10:49] LABS: POTASSIUM 3.5 mEq/L (3.5-5.1)
[2023-01-25 10:53] LABS: CALCIUM 8.8 mg/dL (8.5-10.1); CREATININE 1.9 mg/dL (0.6-1.3)
[2023-01-25] MEDS ORDERED: IODIXANOL 320MG/ML 100 ML BOTTLE IV ONE (13:01)
[2023-01-25] MEDS ORDERED: HEPARIN 1000 UNITS/ML 10ML ONE (13:01)
[2023-01-25] MEDS ORDERED: VERAPAMIL HCL 2.5 MG/1 ML 2ML VIAL IV ONE (13:01)
[2023-01-25] MEDS ORDERED: LIDOCAINE HCL 1% 10 MG/ML 10ML VIAL ONE (13:02)
[2023-01-25] MEDS ORDERED: ATROPINE SULFATE 1MG/10ML SYR IV PRN (15:15)
[2023-01-25] MEDS ORDERED: ACETAMINOPHEN 325MG TABLET PO PRN (15:15)
[2023-01-25] MEDS ORDERED: SODIUM CHLORIDE 0.45% 500 ML IV ONE (15:30)
[2023-01-25] MEDS: ATORVASTATIN CALCIUM 40MG TABLET PO SCH (21:23)
[2023-01-26] VITALS (81 sets, daily range): BP systolic 92–180; BP diastolic 42–125; PULSE 48–93; RESP 12–29; TEMP 98.3–99.1
[2023-01-26] MEDS: PROPOFOL 10MG/ML 100ML 100 ML IV PRN (04:18)
[2023-01-26 05:57] LABS: BASOPHILS % 0.6 % (0.0-2.0); EOSINOPHILS % 4.8 % (0.0-5.0); HEMATOCRIT. 39.7 % (42.0-52.0); HEMOGLOBIN. 13.3 g/dL (14.0-18.0); MEAN CORPUSCULAR HEMOGLOBIN 29.8 pg (28.0-32.0); MEAN CORPUSCULAR HGB CONC 33.5 g/dL (31.0-37.0); MEAN PLATELET VOLUME 8.5 fl (7.4-10.4); MONOCYTES % 13.6 % (2.0-8.0); PLATELET 203 x1000/uL (130-400); RED BLOOD CELL COUNT 4.46 mill/uL (4.7-6.1); RED CELL DISTRIBUTION WIDTH 15.9 % (11.6-14.6); WHITE BLOOD COUNT 5.3 x1000/uL (4.5-11.0)
[2023-01-26] MEDS: BLOOD SUGAR DIAGNOSTIC STRIP TEST SCH ×3 (06:16→16:30)
[2023-01-26] MEDS: INSULIN LISPRO 100 UNITS/ML SUBCUT SCH ×3 (06:17→17:00)
[2023-01-26 08:59] LABS: POTASSIUM 3.9 mEq/L (3.5-5.1)
[2023-01-26] MEDS: MIDODRINE HCL 5MG TABLET PO SCH (09:00)
[2023-01-26] MEDS: CHLORHEXIDINE GLUCONATE 4% EXTERNAL USE TOP SCH (09:00)
[2023-01-26] MEDS: DOCUSATE SODIUM SUGAR FREE 100MG/10ML UDC NG SCH ×2 (09:00→17:00)
[2023-01-26 09:13] LABS: CALCIUM 7.8 mg/dL (8.5-10.1); CREATININE 1.5 mg/dL (0.6-1.3); PHOSPHORUS 2.3 mg/dL (2.5-4.9)
[2023-01-26] MEDS: CITRIC ACID/SODIUM CITRATE SOLN 30ML UDC NG SCH ×2 (11:08→17:45)
[2023-01-26] MEDS: AMIODARONE HCL 200 MG TABLET PO SCH ×2 (11:08→21:15)
[2023-01-26] MEDS: PANTOPRAZOLE SODIUM 40 MG/VIAL IV SCH (11:08)
[2023-01-26] MEDS: ASPIRIN 81MG TABLET PO SCH (11:09)
[2023-01-26] MEDS: ENOXAPARIN 120MG/0.8ML SYR SUBCUT SCH ×2 (11:13→21:16)
[2023-01-26] MEDS: ISOSORBIDE DINITRATE 20MG TABLET PO SCH ×2 (12:25→18:24)
[2023-01-26 12:48] LABS: BG CARBOXYHEMOGLOBIN 0.6 % (0.5-1.5); BG DEOXYHEMOGLOBIN 1.9 % (0.0-5.0); BG FRACTION INSPIRED OXYGEN 30; BG HCO3 ACT 23.2 mmol/L (22.0-26.0); BG METHEMOGLOBIN 0.4 % (0.0-1.5); BG OXYGEN SATURATION 98.1 % (92.0-98.5); BG OXYHEMOGLOBIN 97.1 % (94.0-97.0); BG PCO2 37.4 mmHg (35.0-45.0); BG PH 7.411 (7.350-7.450); BG PO2 114.7 mmHg (75.0-100.0); BG SAMPLE SITE RIGHT RADIAL; BG TOTAL HEMOGLOBIN 14.5 g/dL (12.0-18.0); BG VENT MODE VENT - CPAP
[2023-01-26] MEDS: HYDRALAZINE HCL 50MG TABLET PO SCH ×2 (13:14→21:16)
[2023-01-26] MEDS: SODIUM CHLORIDE 0.9% 1,000 ML IV SCH (13:30)
[2023-01-26] MEDS: HYDRALAZINE 20MG/ML VIAL IV PRN (14:35)
[2023-01-26 15:46] LABS: BG BASE EXCESS -1.1 mmol/L (-2.0-2.0); BG CARBOXYHEMOGLOBIN 0.4 % (0.5-1.5); BG DEOXYHEMOGLOBIN 1.9 % (0.0-5.0); BG FRACTION INSPIRED OXYGEN 35; BG HCO3 ACT 22.9 mmol/L (22.0-26.0); BG METHEMOGLOBIN 0.4 % (0.0-1.5); BG OXYGEN SATURATION 98.1 % (92.0-98.5); BG OXYHEMOGLOBIN 97.3 % (94.0-97.0); BG PCO2 36.1 mmHg (35.0-45.0); BG PO2 117.2 mmHg (75.0-100.0); BG SAMPLE SITE RIGHT RADIAL; BG TOTAL HEMOGLOBIN 14.6 g/dL (12.0-18.0); BG VENT MODE COOL AEROSOL
[2023-01-26] MEDS: MORPHINE SULFATE 2 MG/ML CPJ (NOT FOR IM USE) IV PRN (15:47)
[2023-01-26] MEDS: ACETAMINOPHEN 650MG/20.3ML UDC NG PRN (17:45)
[2023-01-26] MEDS: ATORVASTATIN CALCIUM 40MG TABLET PO SCH (21:16)
[2023-01-27] VITALS (29 sets, daily range): BP systolic 127–195; BP diastolic 76–108; PULSE 69–83; RESP 17–31; TEMP 96.6–100.2
[2023-01-27] MEDS: BLOOD SUGAR DIAGNOSTIC STRIP TEST SCH ×4 (00:49→17:17)
[2023-01-27] MEDS: INSULIN LISPRO 100 UNITS/ML SUBCUT SCH ×4 (00:49→17:18)
[2023-01-27] MEDS: MORPHINE SULFATE 2 MG/ML CPJ (NOT FOR IM USE) IV PRN (04:46)
[2023-01-27] MEDS: HYDRALAZINE 20MG/ML VIAL IV PRN ×2 (04:51→22:34)
[2023-01-27] MEDS: HYDRALAZINE HCL 50MG TABLET PO SCH ×3 (05:30→21:00)
[2023-01-27 05:32] LABS: BASOPHILS % 0.3 % (0.0-2.0); EOSINOPHILS % 1.8 % (0.0-5.0); HEMATOCRIT. 40.8 % (42.0-52.0); HEMOGLOBIN. 13.5 g/dL (14.0-18.0); LYMPHOCYTES % 8.6 % (20.0-50.0); MEAN CORPUSCULAR HEMOGLOBIN 29.7 pg (28.0-32.0); MEAN CORPUSCULAR HGB CONC 33.2 g/dL (31.0-37.0); MEAN CORPUSCULAR VOLUME 89.3 fL (80.0-94.0); MONOCYTES % 9.6 % (2.0-8.0); NEUTROPHILS % 79.7 % (40.0-76.0); PLATELET 223 x1000/uL (130-400); RED BLOOD CELL COUNT 4.57 mill/uL (4.7-6.1); RED CELL DISTRIBUTION WIDTH 15.7 % (11.6-14.6); WHITE BLOOD COUNT 8.3 x1000/uL (4.5-11.0)
[2023-01-27 06:19] LABS: CHLORIDE 118 mEq/L (98-107); INDEX HEMOLYSI 2 (1-3); INDEX ICTERIC 1 (1-4); INDEX LIPEMIC 1 (1-3); SODIUM 146 mEq/L (136-145)
[2023-01-27 06:25] LABS: CALCIUM 8.9 mg/dL (8.5-10.1); CARBON DIOXIDE 23 mEq/L (21-32); CREATININE 1.3 mg/dL (0.6-1.3); GLUCOSE 112 mg/dL (70-105); PHOSPHORUS 2.4 mg/dL (2.5-4.9); UREA NITROGEN BLOOD 22 mg/dL (7-21)
[2023-01-27] MEDS: DOCUSATE SODIUM SUGAR FREE 100MG/10ML UDC NG SCH ×2 (09:12→17:15)
[2023-01-27] MEDS: ASPIRIN 81MG TABLET PO SCH (09:12)
[2023-01-27] MEDS: CITRIC ACID/SODIUM CITRATE SOLN 30ML UDC NG SCH (09:12)
[2023-01-27] MEDS: PANTOPRAZOLE SODIUM 40 MG/VIAL IV SCH (09:12)
[2023-01-27] MEDS: AMIODARONE HCL 200 MG TABLET PO SCH ×2 (09:12→21:00)
[2023-01-27] MEDS: ISOSORBIDE DINITRATE 20MG TABLET PO SCH ×3 (09:12→17:15)
[2023-01-27] MEDS: ENOXAPARIN 120MG/0.8ML SYR SUBCUT SCH ×2 (09:13→21:01)
[2023-01-27] MEDS: CHLORHEXIDINE GLUCONATE 4% EXTERNAL USE TOP SCH (09:13)
[2023-01-27] MEDS ORDERED: POTASSIUM-SODIUM PHOSPHATE POWDER PACKET PO NR (12:15)
[2023-01-27] MEDS: POTASSIUM-SODIUM PHOSPHATE POWDER PACKET PO SCH (17:17)
[2023-01-27] MEDS: ATORVASTATIN CALCIUM 40MG TABLET PO SCH (21:00)
[2023-01-28] VITALS: BP 156/98; PULSE 97; RESP 16; TEMP 101
[2023-01-28] MEDS: MORPHINE SULFATE 2 MG/ML CPJ (NOT FOR IM USE) IV PRN (01:57)
[2023-01-28] MEDS: LORAZEPAM 2MG/ML CPJ IV PRN ×2 (03:48→10:29)
[2023-01-28 04:00] VITALS: BP 140/87; PULSE 94; RESP 20; TEMP 100
[2023-01-28] MEDS: INSULIN LISPRO 100 UNITS/ML SUBCUT SCH ×5 (06:00→23:25)
[2023-01-28] MEDS: HYDRALAZINE HCL 50MG TABLET PO SCH ×3 (06:22→21:33)
[2023-01-28] MEDS: BLOOD SUGAR DIAGNOSTIC STRIP TEST SCH ×5 (06:40→23:26)
[2023-01-28 07:40] LABS: HEMATOCRIT. 36.5 % (42.0-52.0); HEMOGLOBIN. 12.2 g/dL (14.0-18.0); MEAN CORPUSCULAR HEMOGLOBIN 29.5 pg (28.0-32.0); MEAN CORPUSCULAR HGB CONC 33.5 g/dL (31.0-37.0); MEAN CORPUSCULAR VOLUME 88.1 fL (80.0-94.0); PLATELET 241 x1000/uL (130-400); RED BLOOD CELL COUNT 4.14 mill/uL (4.7-6.1); RED CELL DISTRIBUTION WIDTH 15.5 % (11.6-14.6); WHITE BLOOD COUNT 11.5 x1000/uL (4.5-11.0)
[2023-01-28 07:56] LABS: DIFFERENTIAL COMMENT 1
[2023-01-28 08:00] VITALS: BP 181/92; PULSE 102; RESP 50; TEMP 99.3
[2023-01-28 08:36] LABS: CHLORIDE 117 mEq/L (98-107); INDEX HEMOLYSI 1 (1-3); INDEX ICTERIC 1 (1-4); INDEX LIPEMIC 1 (1-3); POTASSIUM 3.9 mEq/L (3.5-5.1); SODIUM 145 mEq/L (136-145)
[2023-01-28 08:42] LABS: CALCIUM 8.7 mg/dL (8.5-10.1); CARBON DIOXIDE 24 mEq/L (21-32); CREATININE 1.2 mg/dL (0.6-1.3); GLUCOSE 135 mg/dL (70-105); PHOSPHORUS 2.2 mg/dL (2.5-4.9); UREA NITROGEN BLOOD 22 mg/dL (7-21)
[2023-01-28] MEDS: CHLORHEXIDINE GLUCONATE 4% EXTERNAL USE TOP SCH (09:00)
[2023-01-28] MEDS ORDERED: METOPROLOL TARTRATE 25MG TABLET PO SCH (09:00)
[2023-01-28] MEDS ORDERED: METOPROLOL SUCCINATE 50MG ER TABLET PO SCH (09:00)
[2023-01-28 09:22] LABS: PLATELET ESTIMATE NORMAL
[2023-01-28] MEDS: PANTOPRAZOLE SODIUM 40 MG/VIAL IV SCH (09:53)
[2023-01-28] MEDS: ISOSORBIDE DINITRATE 20MG TABLET PO SCH ×3 (09:54→17:18)
[2023-01-28] MEDS: ASPIRIN 81MG TABLET PO SCH (09:55)
[2023-01-28] MEDS: AMIODARONE HCL 200 MG TABLET PO SCH ×2 (09:55→21:31)
[2023-01-28] MEDS: POTASSIUM-SODIUM PHOSPHATE POWDER PACKET PO SCH ×2 (09:55→17:12)
[2023-01-28] MEDS: ENOXAPARIN 120MG/0.8ML SYR SUBCUT SCH ×2 (09:56→21:33)
[2023-01-28] MEDS: DOCUSATE SODIUM SUGAR FREE 100MG/10ML UDC NG SCH ×2 (09:56→17:12)
[2023-01-28 12:00] VITALS: BP 167/96; PULSE 105; RESP 20; TEMP 99
[2023-01-28] MEDS ORDERED: POTASSIUM PHOS,M-BASIC-D-BASIC 20 MMOL in DEXT 5% WATER 243.3333 ML IV SCH (12:00)
[2023-01-28 16:00] VITALS: BP 176/96; PULSE 91; RESP 20; TEMP 97.5
[2023-01-28] MEDS: HYDRALAZINE 20MG/ML VIAL IV PRN (17:23)
[2023-01-28 20:00] VITALS: BP 135/81; PULSE 74; RESP 18; TEMP 97.9
[2023-01-28] MEDS ORDERED: CARVEDILOL 6.25 MG TABLET PO SCH (21:00)
[2023-01-28] MEDS: ATORVASTATIN CALCIUM 40MG TABLET PO SCH (21:31)
[2023-01-29] VITALS (17 sets, daily range): BP systolic 86–174; BP diastolic 59–90; PULSE 84–109; RESP 17–41; TEMP 99.1–101.5; O2SAT 98
[2023-01-29] MEDS: ACETAMINOPHEN 650MG/20.3ML UDC NG PRN (01:21)
[2023-01-29] MEDS: HYDRALAZINE HCL 50MG TABLET PO SCH ×3 (05:30→21:59)
[2023-01-29] MEDS: INSULIN LISPRO 100 UNITS/ML SUBCUT SCH ×3 (06:00→18:00)
[2023-01-29] MEDS: BLOOD SUGAR DIAGNOSTIC STRIP TEST SCH ×3 (06:00→18:43)
[2023-01-29 06:10] LABS: HEMATOCRIT. 30.9 % (42.0-52.0); HEMOGLOBIN. 10.3 g/dL (14.0-18.0); MEAN CORPUSCULAR HEMOGLOBIN 29.5 pg (28.0-32.0); MEAN CORPUSCULAR HGB CONC 33.4 g/dL (31.0-37.0); MEAN CORPUSCULAR VOLUME 88.6 fL (80.0-94.0); PLATELET 269 x1000/uL (130-400); RED BLOOD CELL COUNT 3.49 mill/uL (4.7-6.1); RED CELL DISTRIBUTION WIDTH 15.9 % (11.6-14.6); WHITE BLOOD COUNT 15.2 x1000/uL (4.5-11.0)
[2023-01-29 06:15] LABS: DIFFERENTIAL COMMENT 1
[2023-01-29 07:08] LABS: CHLORIDE 117 mEq/L (98-107); INDEX HEMOLYSI 1 (1-3); INDEX ICTERIC 1 (1-4); INDEX LIPEMIC 1 (1-3); POTASSIUM 4.2 mEq/L (3.5-5.1); SODIUM 146 mEq/L (136-145)
[2023-01-29 07:09] LABS: AMMONIA 35 uMol/L (<32)
[2023-01-29 07:26] LABS: ALANINE AMINOTRANSFERASE 37 IU/L (13-61); ALBUMIN 2.8 g/dL (3.4-5.0); ASPARTATE AMINOTRANSFERASE 38 IU/L (15-37); BILIRUBIN DIRECT 0.3 mg/dL (0.0-0.2); BILIRUBIN TOTAL 0.8 mg/dL (0.1-1.0); CALCIUM 8.9 mg/dL (8.5-10.1); CARBON DIOXIDE 24 mEq/L (21-32); CREATININE 1.4 mg/dL (0.6-1.3); GLUCOSE 144 mg/dL (70-105); PHOSPHORUS 2.9 mg/dL (2.5-4.9); PROTEIN TOTAL 6.6 g/dL (6.0-8.3); UREA NITROGEN BLOOD 32 mg/dL (7-21)
[2023-01-29] MEDS ORDERED: RISPERIDONE 0.5MG TABLET PO SCH (09:00)
[2023-01-29] MEDS: SODIUM CHLORIDE 0.45% 1,000 ML IV SCH ×2 (09:00→23:01)
[2023-01-29] MEDS: CHLORHEXIDINE GLUCONATE 4% EXTERNAL USE TOP SCH (09:00)
[2023-01-29] MEDS: PANTOPRAZOLE SODIUM 40 MG/VIAL IV SCH (10:57)
[2023-01-29] MEDS: ASPIRIN 81MG TABLET PO SCH (10:58)
[2023-01-29] MEDS: AMIODARONE HCL 200 MG TABLET PO SCH ×2 (10:58→22:59)
[2023-01-29] MEDS: ENOXAPARIN 120MG/0.8ML SYR SUBCUT SCH ×2 (10:58→22:58)
[2023-01-29] MEDS: POTASSIUM-SODIUM PHOSPHATE POWDER PACKET PO SCH ×2 (10:58→18:46)
[2023-01-29] MEDS: CARVEDILOL 12.5MG TABLET PO SCH ×2 (10:59→21:00)
[2023-01-29] MEDS: ISOSORBIDE DINITRATE 20MG TABLET PO SCH ×3 (11:01→17:00)
[2023-01-29] MEDS: DOCUSATE SODIUM SUGAR FREE 100MG/10ML UDC NG SCH ×2 (11:03→17:00)
[2023-01-29] MEDS: PIPERACILLIN/TAZOBACTAM 3.375 G in DEXTROSE 5% WATER 50 ML IV SCH ×3 (11:32→22:56)
[2023-01-29] MEDS ORDERED: IPRATROPIUM/ALBUTEROL 0.5-3(2.5)MG/3ML NEB ONE (12:35)
[2023-01-29 12:38] LABS: BG BASE EXCESS 1.7 mmol/L (-2.0-2.0); BG CARBOXYHEMOGLOBIN 0.1 % (0.5-1.5); BG DEOXYHEMOGLOBIN 9.8 % (0.0-5.0); BG FRACTION INSPIRED OXYGEN 28; BG HCO3 ACT 24.5 mmol/L (22.0-26.0); BG METHEMOGLOBIN 0.1 % (0.0-1.5); BG OXYGEN SATURATION 90.2 % (92.0-98.5); BG PCO2 32.3 mmHg (35.0-45.0); BG PH 7.498 (7.350-7.450); BG PO2 58.3 mmHg (75.0-100.0); BG SAMPLE SITE RIGHT RADIAL; BG TOTAL HEMOGLOBIN 11.2 g/dL (12.0-18.0); BG VENT MODE NASAL CANNULA
[2023-01-29 13:59] LABS: PLATELET ESTIMATE NORMAL
[2023-01-29] MEDS: ATORVASTATIN CALCIUM 40MG TABLET PO SCH (23:01)
[2023-01-30] VITALS (26 sets, daily range): BP systolic 81–109; BP diastolic 45–76; PULSE 60–107; RESP 5–41; TEMP 98.2–99.6
[2023-01-30] MEDS: INSULIN LISPRO 100 UNITS/ML SUBCUT SCH ×3 (00:46→12:00)
[2023-01-30] MEDS: BLOOD SUGAR DIAGNOSTIC STRIP TEST SCH ×3 (06:00→12:00)
[2023-01-30] MEDS: HYDRALAZINE HCL 50MG TABLET PO SCH (06:00)
[2023-01-30] MEDS: PIPERACILLIN/TAZOBACTAM 3.375 G in DEXTROSE 5% WATER 50 ML IV SCH (06:32)
[2023-01-30 07:38] LABS: POTASSIUM 5.1 mEq/L (3.5-5.1)
[2023-01-30 07:49] LABS: CALCIUM 8.3 mg/dL (8.5-10.1); CREATININE 4.2 mg/dL (0.6-1.3)
[2023-01-30] MEDS: CHLORHEXIDINE GLUCONATE 4% EXTERNAL USE TOP SCH (09:00)
[2023-01-30] MEDS: ASPIRIN 81MG TABLET PO SCH (09:00)
[2023-01-30] MEDS ORDERED: NOREPINEPHRINE 32 MG in DEXT 5% WATER 218 ML IV PRN (09:00)
[2023-01-30] MEDS: DOCUSATE SODIUM SUGAR FREE 100MG/10ML UDC NG SCH (09:00)
[2023-01-30] MEDS ORDERED: FAMOTIDINE 20MG/2ML VIAL IV SCH (09:00)
[2023-01-30 09:19] LABS: BG BASE EXCESS 0.4 mmol/L (-2.0-2.0); BG CARBOXYHEMOGLOBIN 0.3 % (0.5-1.5); BG DEOXYHEMOGLOBIN 1.8 % (0.0-5.0); BG FRACTION INSPIRED OXYGEN 40; BG HCO3 ACT 23.3 mmol/L (22.0-26.0); BG METHEMOGLOBIN 0.3 % (0.0-1.5); BG OXYGEN SATURATION 98.2 % (92.0-98.5); BG OXYHEMOGLOBIN 97.6 % (94.0-97.0); BG PCO2 30.4 mmHg (35.0-45.0); BG PH 7.503 (7.350-7.450); BG SAMPLE SITE RIGHT RADIAL; BG TOTAL HEMOGLOBIN 7.8 g/dL (12.0-18.0); BG VENT MODE NASAL CANNULA
[2023-01-30] MEDS ORDERED: DEXT 5%/0.2% NACL 1,000 ML IV SCH (09:45)
[2023-01-30] MEDS: MIDODRINE HCL 5MG TABLET PO SCH ×2 (09:58→13:56)
[2023-01-30] MEDS ORDERED: DOPAMINE 400MG/250ML PREMIX 250 ML IV PRN (10:00)
[2023-01-30 12:07] LABS: HEMATOCRIT. 22.7 % (42.0-52.0); MEAN CORPUSCULAR HGB CONC 31.8 g/dL (31.0-37.0); MEAN CORPUSCULAR VOLUME 91.2 fL (80.0-94.0); MEAN PLATELET VOLUME 9.2 fl (7.4-10.4); PLATELET 344 x1000/uL (130-400); RED BLOOD CELL COUNT 2.49 mill/uL (4.7-6.1); RED CELL DISTRIBUTION WIDTH 16.6 % (11.6-14.6); WHITE BLOOD COUNT 22.6 x1000/uL (4.5-11.0)
[2023-01-30 12:15] LABS: DIFFERENTIAL COMMENT 1
[2023-01-30 12:17] LABS: HEMOGLOBIN. 7.2 g/dL (14.0-18.0)
[2023-01-30 12:31] LABS: LACTIC ACID 2.4 mmol/L (0.4-2.0)
[2023-01-30] MEDS ORDERED: LIDOCAINE HCL 1% 10 MG/ML 10ML VIAL ONE (12:37)
[2023-01-30 13:42] LABS: ANISOCYTOSIS 1+; NUCLEATED RED BLOOD CELLS 1 /100 WBC; PLATELET ESTIMATE NORMAL
[2023-01-30] MEDS ORDERED: EPINEPHRINE 10 MG in SODIUM CHLORIDE 0.9% 240 ML IV PRN (16:45)
[2023-01-30] MEDS ORDERED: PIPERACILLIN/TAZOBACTAM 3.375 G in DEXTROSE 5% WATER 50 ML IV SCH (21:00)
[2023-01-30] MEDS ORDERED: ENOXAPARIN 120MG/0.8ML SYR SUBCUT SCH (21:00)
[2023-01-31] MEDS ORDERED: AMIODARONE HCL 200 MG TABLET PO SCH (09:00)
[2023-01-31] MEDS ORDERED: FAMOTIDINE 20MG/2ML VIAL IV SCH (09:00)
== END 2023-01-30 21:08 | DRG 720 ==
LOC: ER 06:57 → MICUSO 08:29 → EDBEDREQ 08:32 → EDBEDREQTM 08:32 → MICUSO 10:15 → 8WST 01-27 13:15 → 5EST 01-29 13:05 → MICUSO 01-30 10:35
PROVIDERS: ADMIT Internal Medicine; ATTEND Internal Medicine
PROC: 5A1955Z Respiratory Ventilation, Greater than 96 Consecutive Hours (ICD-10-PCS; principal; 2023-01-19)
PROC: 02HV33Z Insertion of Infusion Device into Superior Vena Cava, Percutaneous Approach (ICD-10-PCS; 2023-01-19)
PROC: B548ZZA Ultrasonography of Superior Vena Cava, Guidance (ICD-10-PCS; 2023-01-19)
PROC: 4A00X4Z Measurement of Central Nervous Electrical Activity, External Approach (ICD-10-PCS; 2023-01-25)
PROC: B211YZZ Fluoroscopy of Multiple Coronary Arteries using Other Contrast (ICD-10-PCS; 2023-01-25)
PROC: 0BH17EZ Insertion of Endotracheal Airway into Trachea, Via Natural or Artificial Opening (ICD-10-PCS; 2023-01-30)
PROC: 5A1935Z Respiratory Ventilation, Less than 24 Consecutive Hours (ICD-10-PCS; 2023-01-30)
PROC: 5A2204Z Restoration of Cardiac Rhythm, Single (ICD-10-PCS; 2023-01-30)
PROC: 5A12012 Performance of Cardiac Output, Single, Manual (ICD-10-PCS; 2023-01-30)
PROC: 05H533Z Insertion of Infusion Device into Right Subclavian Vein, Percutaneous Approach (ICD-10-PCS; 2023-01-30)
PROC: B546ZZA Ultrasonography of Right Subclavian Vein, Guidance (ICD-10-PCS; 2023-01-30)
DX: A41.9 Sepsis, unspecified organism (principal); J96.01 Acute respiratory failure with hypoxia; I46.9 Cardiac arrest, cause unspecified; N17.0 Acute kidney failure with tubular necrosis; R57.0 Cardiogenic shock; R65.21 Severe sepsis with septic shock; E44.1 Mild protein-calorie malnutrition; G93.40 Encephalopathy, unspecified; I42.8 Other cardiomyopathies; E83.39 Other disorders of phosphorus metabolism; I50.23 Acute on chronic systolic (congestive) heart failure; I11.0 Hypertensive heart disease with heart failure; E87.6 Hypokalemia; I49.01 Ventricular fibrillation; I48.91 Unspecified atrial fibrillation; E11.22 Type 2 diabetes mellitus with diabetic chronic kidney disease; E78.5 Hyperlipidemia, unspecified; E83.51 Hypocalcemia; I13.0 Hypertensive heart and chronic kidney disease with heart failure and stage 1 through stage 4 chronic kidney disease, or unspecified chronic kidney disease; N18.9 Chronic kidney disease, unspecified; J84.9 Interstitial pulmonary disease, unspecified; I50.813 Acute on chronic right heart failure; E66.9 Obesity, unspecified; J98.11 Atelectasis; E87.1 Hypo-osmolality and hyponatremia; I71.40 Abdominal aortic aneurysm, without rupture, unspecified; I25.10 Atherosclerotic heart disease of native coronary artery without angina pectoris; E87.5 Hyperkalemia; I50.82 Biventricular heart failure; E87.3 Alkalosis; I34.0 Nonrheumatic mitral (valve) insufficiency; T82.838A Hemorrhage due to vascular prosthetic devices, implants and grafts, initial encounter; Y84.8 Other medical procedures as the cause of abnormal reaction of the patient, or of later complication, without mention of misadventure at the time of the procedure; N14.11 Contrast-induced nephropathy; T50.8X5A Adverse effect of diagnostic agents, initial encounter; Y92.238 Other place in hospital as the place of occurrence of the external cause; Z78.1 Physical restraint status; Z82.49 Family history of ischemic heart disease and other diseases of the circulatory system; Z86.79 Personal history of other diseases of the circulatory system; Z95.3 Presence of xenogenic heart valve; Z68.31 Body mass index [BMI] 31.0-31.9, adult; I25.2 Old myocardial infarction
CPT/HCPCS: 31500; 36415; 36573; 36600; 71045; 71275; 80048; 80053; 80061; 80076; 80305; 81003; 82140; 82150; 82330; 82375; 82533; 82550; 82553; 82805; 82962; 83036; 83605; 83735; 83880; 84100; 84145; 84443; 84478; 84484; 85025; 85027; 87070; 92610; 92950; 93005; 93306; 93970; 93971; 94002; 94003; 94640; 95816; 97166; 99291; A6261; C1725; C9113; J0282; J0360; J1644; J1650; J1940; J2060; J2175; J2250; J2270; J2370; J2543; J2704; J3010; J3480; J3490; J7030; J7050; J7060; Q9967; A4315